=== PATIENT | male | born 1990 | race Caucasian/White ===

== ENCOUNTER 2017-05-04 17:36 | Emergency (ER) | payer OTHER ==
[~2017-05-04] VITALS: Ht 180.3 cm; Wt 86.9 kg
[2017-05-04 17:46] VITALS: TEMP 37.3; Ht 180.3 cm; Wt 86.9 kg
[2017-05-04] MEDS ORDERED: SODIUM CHLORIDE 0.9% 1000ML 1,000 ML IV STA (18:14)
[2017-05-04 18:44] LABS: BASO % 0.3 %; BASO ABS # 0.03 K/uL (0-0.2); COMPLETE YES; EOS % 1.1 %; HEMATOCRIT 46.8 % (42-52); IG% 0.3 %; LYMPH ABS # 2.33 K/uL (1.2-3.4); MEAN CELL VOLUME 86.3 fL (80-100); MEAN CORPUSCULAR HEMOGLOBIN 29.5 pg (25-34); MEAN CORPUSCULAR HGB CONC 34.2 g/dl (32-36); MEAN PLATELET VOLUME 8.9 fL (7.4-10.4); NEUT % 67.3 %; PLATELET COUNT 258 K/uL (130-400); RED BLOOD COUNT 5.42 M/uL (4.7-6.1); WHITE BLOOD COUNT 10.59 K/uL (4.8-10.8)
--- NOTE | 2017-05-04 18:46 | DIAGNOSTIC IMAGING REPORT ---
CHEST ONE VIEW PORTABLE CLINICAL HISTORY: Overdose COMPARISON STUDY: Chest CT April 28, 2014. FINDINGS: There is no pneumothorax or pleural effusion. No consolidation is identified and there is no evidence of pulmonary edema. Cardiomediastinal silhouette is normal. IMPRESSION: No acute cardiopulmonary findings. Electronically signed by: Arley Ramirez M.D. 05/04/2017 6:45 PM Dictated Date/Time: 05/04/2017 6:44 PM
--- NOTE | 2017-05-04 18:47 | EMERGENCY ROOM VISIT NOTE ---
History Report prepared by Sharlene: Luis Olivo Under the Supervision of: Dr. Abelino Rodriguez D.O. First contact with patient: 17:53 Chief Complaint: OVERDOSE (INTENTIONAL) Stated Complaint: MAY HAVE OD History of Present Illness The patient is a 26 year old male who presents to the Emergency Room for evaluation of a possible multi-drug overdose. He states that he took a large amount of Klonopin throughout the day. He states that the Klonopin were 0.5 mg tablets. The patient is unsure how many Klonopin he took in total. He also admits to taking Percocet and using speed and IV heroin today as well. He states "I'm addicted to opiates". The patient states that he and his are getting . He states "I'm just having a nervous breakdown". He states that he was trying to harm himself. The patient has not been admitted to a mental health facility before. He has been through drug rehab multiple times, with the most recent visit being two years ago. He notes that he has a history of a-fib and is on Metoprolol. The patient is a smoker. He states that the most recent time he drank alcohol was yesterday. He states that he occasionally smokes marijuana. Per friend, the patient was brought to their house by his mother. He states that the patient's mother brought him over because he appeared very intoxicated, and she was concerned that he was harming himself but would not let her take him to the hospital. HPI limited secondary to drug intoxication. Source of History: patient, friend History Limited By: intoxication Onset: Today Quality: other (multi-drug overdose) Timing: other (episode) Review of Systems ROS limited secondary to drug intoxication. Past Medical & Surgical Surgical Problems: (1) Hx of tonsillectomy Social History Problems: (1) Heroin use (2) IV drug user Family History FHx: cardiovascular disease Social History Smoking Status: Current Every Day Smoker Alcohol Use: none Drug Use: heroin Marital Status: single Housing Status: lives with family Occupation Status: employed Current/Historical Medications No Active Prescriptions or Reported Meds Allergies Coded Allergies: No Known Allergies (Unverified , 02/12/16) Physical Exam Vital Signs Date Time Temp Pulse Resp B/P (MAP) Pulse Ox O2 Delivery O2 Flow Rate FiO2 05/04/17 21:07 105 18 143/81 98 Room Air 05/04/17 19:21 90 16 162/87 97 Room Air 05/04/17 17:46 37.3 132 20 153/100 95 Room Air Physical Exam GENERAL: Patient is listless and slow to respond to questions. Makes poor eye contact at times. EYES: Pupils dilated and minimally reactive to light bilaterally. EARS, NOSE, MOUTH AND THROAT: The nose is without any evidence of any deformity. Mucous membranes are moist tongue is midline NECK: The neck is nontender and supple. RESPIRATORY: Normal respiratory effort is noted there is no evidence of wheezing rhonchi or rales CARDIOVASCULAR: Tachycardic but regular. No definite murmurs to auscultation. GASTROINTESTINAL: The abdomen is soft. Bowel sounds are present in all quadrants. Abdomen is nontender MUSCULOSKELETAL/EXTREMITIES: There is no evidence of gross deformity full range of motion is noted in the hips and shoulders SKIN: No pedal edema. Track jamil in the left AC. NEUROLOGIC: Patient is oriented x3. Patellar reflexes were 1+ bilaterally. PSYCH: Currently admitting to using drugs. Vague suicidal ideation surrounding his recent problems with his . Medical Decision & Procedures ER Provider Diagnostic Interpretation: X-ray results as stated below per interpretation by me and the radiologist. CHEST ONE VIEW PORTABLE FINDINGS: There is no pneumothorax or pleural effusion. No consolidation is identified and there is no evidence of pulmonary edema. Cardiomediastinal silhouette is normal. IMPRESSION: No acute cardiopulmonary findings. Electronically signed by: Arley Ramirez M.D. Laboratory Results 05/04/17 18:20 Red Blood Count 5.42, Mean Corpuscular Volume 86.3, Mean Corpuscular Hemoglobin 29.5, Mean Corpuscular Hemoglobin Concent 34.2, Mean Platelet Volume 8.9, Neutrophils (%) (Auto) 67.3, Lymphocytes (%) (Auto) 22.0, Monocytes (%) (Auto) 9.0, Eosinophils (%) (Auto) 1.1, Basophils (%) (Auto) 0.3, Neutrophils # (Auto) 7.13, Lymphocytes # (Auto) 2.33, Monocytes # (Auto) 0.95, Eosinophils # (Auto) 0.12, Basophils # (Auto) 0.03 05/04/17 18:20 Test 05/04/17 18:20 05/04/17 18:28 05/04/17 18:44 White Blood Count 10.59 K/uL (4.8-10.8) Red Blood Count 5.42 M/uL (4.7-6.1) Hemoglobin 16.0 g/dL (14.0-18.0) Hematocrit 46.8 % (42-52) Mean Corpuscular Volume 86.3 fL (80-100) Mean Corpuscular Hemoglobin 29.5 pg (25-34) Mean Corpuscular Hemoglobin Concent 34.2 g/dl (32-36) Platelet Count 258 K/uL (130-400) Mean Platelet Volume 8.9 fL (7.4-10.4) Neutrophils (%) (Auto) 67.3 % Lymphocytes (%) (Auto) 22.0 % Monocytes (%) (Auto) 9.0 % Eosinophils (%) (Auto) 1.1 % Basophils (%) (Auto) 0.3 % Neutrophils # (Auto) 7.13 K/uL (1.4-6.5) Lymphocytes # (Auto) 2.33 K/uL (1.2-3.4) Monocytes # (Auto) 0.95 K/uL (0.11-0.59) Eosinophils # (Auto) 0.12 K/uL (0-0.5) Basophils # (Auto) 0.03 K/uL (0-0.2) RDW Standard Deviation 40.6 fL (36.4-46.3) RDW Coefficient of Variation 12.8 % (11.5-14.5) Immature Granulocyte % (Auto) 0.3 % Immature Granulocyte # (Auto) 0.03 K/uL (0.00-0.02) Anion Gap 11.0 mmol/L (3-11) Est Creatinine Clear Calc Drug Dose 110.2 ml/min Estimated GFR () 108.3 Estimated GFR (Non- 93.5 BUN/Creatinine Ratio 15.9 (10-20) Calcium Level 9.0 mg/dl (8.5-10.1) Total Bilirubin 0.9 mg/dl (0.2-1) Direct Bilirubin 0.2 mg/dl (0-0.2) Aspartate Amino Transf (AST/SGOT) 32 U/L (15-37) Alanine Aminotransferase (ALT/SGPT) 93 U/L (12-78) Alkaline Phosphatase 101 U/L (45-117) Total Creatine Kinase 196 U/L (39-308) Creatine Kinase MB 1.2 ng/ml (0.5-3.6) Creatine Kinase MB Ratio 0.6 (0-3.0) Troponin I < 0.015 ng/ml (0-0.045) Total Protein 8.3 gm/dl (6.4-8.2) Albumin 4.7 gm/dl (3.4-5.0) Lipase 81 U/L (73-393) Salicylates Level < 1.7 mg/dl (2.8-20) Acetaminophen Level < 2 ug/ml (10-30) Venous Blood pH 7.46 (7.36-7.41) Venous Blood Partial Pressure CO2 38 mmHg (38.0-50.0) Venous Blood Partial Pressure O2 37 mmHg Venous Blood HCO3 26 mmol/L Venous Blood Oxygen Saturation 74.6 % Venous Blood Base Excess 2.5 mmol/L Ethyl Alcohol mg/dL < 3.0 mg/dl (0-3) Bedside Glucose 105 mg/dl (70-99) Laboratory results per my review. Medications Administered Medications (Trade) Dose Ordered Sig/Nicolle Route Start Time Stop Time Status Last Admin Dose Admin Sodium Chloride 1,000 ml @ 999 mls/hr Q1H1M STAT IV 05/04/17 18:14 05/04/17 19:14 DC 05/04/17 19:08 999 MLS/HR ECG Indication: toxicologic Rate (beats per minute): 115 Rhythm: sinus tachycardia Findings: no ectopy, other (No acute ST segment abnormalities) Comparison ECG Date: Sep 20, 2014 Change: no significant change ED Course 1801: The patient was evaluated in room A8. A complete history and physical examination were performed. 1813: Ordered NSS 1,000 ml @ 999 mls/hr IV 2024: I reassessed the patient. He is more awake. He states that he was not trying to hurt himself today. 2139: I checked in on the patient. He is resting comfortably. He denies any suicidal ideation. 2229: The patient was signed out to Dr. Guerra at the change of shift pending clinical sobriety. Medical Decision Differential diagnosis: Etiologies such as mood disorder, infection, hypoglycemia, electrolyte abnormalities, cardiac sources, intracerebral event, toxicologic, neurologic, as well as others were entertained. Nursing notes reviewed. Additional history is obtained from the patient's family members. The patient is a 26-year-old male who presented to the emergency department for a mental health evaluation. The patient admits to taking a significant amount of his prescription benzodiazepine as well as his prescription pain medication. He also states that he used heroin via the IV route earlier today. He states that he started using these medications in the late morning and then continued throughout the day. He was noted to have an alteration in his mental status by his family members and he was brought to the emergency department. He did admit that he was using these medications recreationally but also because he was very saddened because of a recent problem with his relationship with his significant other. The patient at this time is denying any suicidal or homicidal ideation. He was very intoxicated when he initially came to the emergency department. He was observed in the emergency Department and reevaluated multiple times. He was evaluated by the mental health bilingual patient support caseworker. Additional history was obtained from the family members. They were very concerned about the patient's drug abuse and also concerned that he may have been using these medications in an attempt to hurt himself but when the patient was much less clinically intoxicated he admitted that he did not take any of these medications in an attempt to harm himself rather he states that he has a history of drug addiction and felt as though he was using his medications and a recreational manner. The patient was allowed to rest longer in the emergency department. He was signed out at change of shift to Dr. Guerra. Please see his note for continuation of care but I did tell the patient that if he was able to be discharged home he should avoid any further alcohol or drug abuse. He was also advised to avoid operating any heavy machinery for next 24 hours. This would include driving a vehicle. He was also encouraged to call crisis or return to the emergency department immediately if symptoms change worsen or the need arises. He was also encouraged to follow-up with a therapist as soon as possible. [place] Drug Monitoring Program Search Results: patient reviewed within database, no issues identified Impression Primary Impression: Substance abuse Additional Impression: Depression Scribe Attestation The scribe's documentation has been prepared under my direction and personally reviewed by me in its entirety. I confirm that the note above accurately reflects all work, treatment, procedures, and medical decision making performed by me. Departure Information Dispostion Still a Patient (Signed out to Dr. Guerra ) Prescriptions No Active Prescriptions or Reported Meds Referrals No Doctor, Assigned (PCP) Patient Instructions My [facility] Problem Qualifiers
[2017-05-04 18:57] LABS: VEN BLD GAS O2 SATURATION 74.6 %; VEN BLOOD GAS BASE EXCESS 2.5 mmol/L
[2017-05-04 19:06] LABS: ALT/SGPT 93 U/L (12-78); AST/SGOT 32 U/L (15-37); BLOOD UREA NITROGEN 18 mg/dl (7-18); BUN/CREATININE RATIO 15.9 (10-20); CARBON DIOXIDE 25 mmol/L (21-32); CHLORIDE 108 mmol/L (98-107); GLUCOSE 106 mg/dl (70-99); POTASSIUM 3.4 mmol/L (3.5-5.1); SODIUM 144 mmol/L (136-145)
[2017-05-04 19:10] LABS: ACETAMINOPHEN < 2 ug/ml (10-30)
[2017-05-04 19:12] LABS: ALKALINE PHOSPHATASE 101 U/L (45-117); CKMB/CK RATIO 0.6 (0-3.0)
[2017-05-05 00:11] VITALS: BP 144/89; PULSE 80; O2SAT 98
== END 2017-05-05 00:12 | disposition home or self-care (01) ==
LOC: C.EDB 17:37 → C.EDA 05-05 00:12
DX: T40.1X2A Poisoning by heroin, intentional self-harm, initial encounter (principal); F11.10 Opioid abuse, uncomplicated; F15.10 Other stimulant abuse, uncomplicated; F19.10 Other psychoactive substance abuse, uncomplicated; F32.9 Major depressive disorder, single episode, unspecified; F17.200 Nicotine dependence, unspecified, uncomplicated; Z90.89 Acquired absence of other organs; Z82.49 Family history of ischemic heart disease and other diseases of the circulatory system

== ENCOUNTER 2017-10-19 19:10 | Emergency (ER) | payer OTHER ==
[~2017-10-19] VITALS: Ht 182.9 cm; Wt 89.4 kg
[2017-10-19 19:21] VITALS: TEMP 36.9; Ht 182.9 cm; Wt 89.4 kg
[2017-10-19] MEDS ORDERED: LIDOCAINE/EPINEPHRINE 1% 20 ML VIAL INFIL STA (19:31)
[2017-10-19] MEDS ORDERED: CEPHALEXIN 500MG HOME PACK 1 EA BTL PO STA (20:05)
[2017-10-19] MEDS ORDERED: SEPTRA DS HOME PACK 1 EA VIAL PO STA (20:05)
[2017-10-19] MEDS ORDERED: CEPH500C PO (20:07)
[2017-10-19] MEDS ORDERED: SULF800T23 PO (20:07)
--- NOTE | 2017-10-19 20:11 | EMERGENCY ROOM VISIT NOTE ---
ED Visit Note First contact with patient: 19:27 CHIEF COMPLAINT: Pain in the left buttock HISTORY OF PRESENT ILLNESS: This 27-year-old male patient presents to the emergency department, ambulatory, 2 days after they noticed a hard, red, tender area on the left buttock. It is slowly getting larger, more painful and tender. No fever, chills, or loss of appetite. There has been no drainage from the area. There was no injury to the area preceding the infection. They rate the pain as throbbing and 5/10. Tetanus shot is up to date. They have tried nothing. The patient is not diabetic. The patient has no history of subcutaneous abscesses. REVIEW OF SYSTEMS: A 10-review of systems was performed with positives and pertinent negatives listed in the history of present illness. All other systems were reviewed and are negative. ALLERGIES: None MEDICATIONS: None PMH: None SOCIAL HISTORY: The patient lives locally with family. He denies drug, alcohol use. The patient admits to smoking one half pack cigarettes per day. PHYSICAL EXAM: Vital Signs: Reviewed Nurse's notes, vital signs stable. GENERAL : This is a 27-year-old white male, no acute distress, non toxic in appearance, well-developed well-nourished. SKIN: There is an erythematous indurated area on the left buttock which measures about 3 cm in diameter. It is fluctuant but there is no pointing or drainage. There is a zone of inflammation around it but no lymphangitis. Capillary refill less than 2 seconds. MUSCULOSKELETAL: There is no limitation of the range of motion of the left lower extremity. EMERGENCY DEPARTMENT COURSE: I examined the patient. Verbal consent was obtained to perform the procedure. After saline and Betadine cleansing and 3 mL of 1% buffered lidocaine anesthesia, the abscess was incised with a number 11 scalpel blade. A large amount of purulent material was released with more expressed by pressure. A swab was obtained for culture. 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 The abscess cavity was then copiously irrigated with sterile saline under pressure. The area was then packed with bacitracin soaked packing. The area was cleaned with sterile saline and dressed with bacitracin and a bulky bandage. The patient tolerated the procedure well. The patient was discharged home in stable condition. I attest that I have personally reviewed the patient's current medication list. Patient was found to have normal blood pressure on screening and does not require follow-up. DIFFERENTIAL DIAGNOSIS: Abscess, cellulitis, malignancy, and others DIAGNOSIS: Abscess of the left buttock Problem List Surgical Problems: (1) Hx of tonsillectomy Status: Resolved Social History Problems: (1) Heroin use Status: Chronic (2) IV drug user Status: Chronic Current/Historical Medications Scheduled Cephalexin Monohydrate (Keflex), 500 MG PO QID Sulfa/Trimethoprim (Bactrim Ds 800MG/160MG), 1 TAB PO BID Allergies Coded Allergies: No Known Allergies (Unverified , 02/12/16) Vital Signs Date Time Temp Pulse Resp B/P (MAP) Pulse Ox O2 Delivery O2 Flow Rate FiO2 10/19/17 19:21 36.9 118 20 96 Room Air Departure Information Impression Primary Impression: Abscess of left buttock Dispostion Home / Self-Care Condition GOOD Prescriptions Sulfa/Trimethoprim (Bactrim Ds 800MG/160MG) Tab 1 TAB PO BID for 7 Days, #14 TAB Prov: Marysol Napoles PA-C 10/19/17 Cephalexin Monohydrate (Keflex) 500 Mg Cap 500 MG PO QID for 7 Days, #28 CAP Prov: Marysol Napoles PA-C 10/19/17 Referrals No Doctor, Assigned (PCP) Patient Instructions ED Abscess [facility] Additional Instructions You were seen in the emergency department today for an abscess on your left buttock. This was successfully drained, and packing was placed. Leave the packing in place for the next 48 hours. You should be seen in the emergency department or your PCP to have packing removed at that time and with the wound reevaluated. You may change the outer dressing if it becomes saturated with blood or pus. Please avoid getting the wound wet until the packing is removed. You were prescribed Bactrim and Keflex to be taken as directed. This is an antibiotic. All antibiotics have the potential to cause diarrhea. Stop this medication and contact a medical provider if you were to develop any significant adverse side effects including: wheezing, shortness of breath, passing out, vomiting, or a diffuse rash. Always take antibiotics as directed and COMPLETE the ENTIRE course regardless of the improvement of your symptoms. Ibuprofen(Motrin, Advil) may be used for fever or pain. Use 600mg every six hours as needed. Take with food. Avoid using more than 2400mg in a 24 hour period. Do not use 2400mg per day for more than three consecutive days without physician direction. Prolonged inappropriate use can lead to stomach upset or ulcers. (AND/OR) Acetaminophen(Tylenol) may be used for fever or pain. Use 1000mg every six hours as needed. Avoid using more than 3000mg in a 24 hour period. Please return to the emergency department for worsening puslike drainage, fever , chills, nausea, vomiting, systemic symptoms, or other concerning symptoms.
[2017-10-19 20:25] VITALS: BP 136/75; PULSE 97; O2SAT 96
== END 2017-10-19 20:27 | disposition home or self-care (01) ==
LOC: C.EDB 19:11 → C.EDD 20:27
DX: L02.31 Cutaneous abscess of buttock (principal); F17.210 Nicotine dependence, cigarettes, uncomplicated; F11.90 Opioid use, unspecified, uncomplicated

== ENCOUNTER 2017-11-13 15:52 | Emergency (ER) | payer OTHER ==
[~2017-11-13] VITALS: Ht 182.9 cm; Wt 88.5 kg
[2017-11-13 16:10] VITALS: TEMP 37; Ht 182.9 cm; Wt 88.5 kg
[2017-11-13] MEDS ORDERED: MoRPHine SULFATE 4 MG/ML 1 ML CARP\\VIAL IV STA (16:58)
[2017-11-13] MEDS ORDERED: ONDANSETRON INJ 2 MG/ML 2 ML VIAL IV STA (16:58)
[2017-11-13] MEDS ORDERED: CEFTRIAXONE SOD INJ 1 GM ADDVIAL IV STA (16:58)
[2017-11-13] MEDS ORDERED: HYDROCODONE/ACETAMOPHEN 5/325MG TAB PO ONE (17:00)
[2017-11-13] MEDS ORDERED: SULFAMETHOXAZOLE/TRIMETHOPRIM DS 800/160MG TAB PO ONE (17:00)
[2017-11-13] MEDS ORDERED: CEPHALEXIN MONOHYDRATE 250 MG CAP PO ONE (17:00)
[2017-11-13 17:27] LABS: BASO % 0.4 %; BASO ABS # 0.04 K/uL (0-0.2); COMPLETE YES; EOS % 3.3 %; HEMATOCRIT 43.1 % (42-52); LYMPH % 18.5 %; LYMPH ABS # 2.04 K/uL (1.2-3.4); MEAN CELL VOLUME 87.4 fL (80-100); MEAN CORPUSCULAR HEMOGLOBIN 30.8 pg (25-34); MEAN CORPUSCULAR HGB CONC 35.3 g/dl (32-36); MEAN PLATELET VOLUME 8.7 fL (7.4-10.4); MONO % 10.1 %; NEUT % 66.7 %; PLATELET COUNT 248 K/uL (130-400); RED BLOOD COUNT 4.93 M/uL (4.7-6.1); WHITE BLOOD COUNT 11.02 K/uL (4.8-10.8)
[2017-11-13] MEDS ORDERED: OPTIRAY 320 IV PRN (17:30)
[2017-11-13 17:47] LABS: BUN/CREATININE RATIO 14.3 (10-20); CALCIUM 9.3 mg/dl (8.5-10.1); CREATININE 0.98 mg/dl (0.60-1.40)
--- NOTE | 2017-11-13 18:48 | DIAGNOSTIC IMAGING REPORT ---
CT FACIAL-MAXILLOFACIAL WITH CT DOSE: 137.99 mGy.cm CLINICAL HISTORY: Right-sided facial swelling and redness. TECHNIQUE: Patient was scanned in a dynamic helical fashion during intravenous administration 116 cc of Optiray 320. Coronal reformatted images were acquired. A dose lowering technique was utilized adhering to the principles of ALARA. COMPARISON STUDY: None. FINDINGS: No facial fractures are visualized. There is no evidence of acute sinusitis. Visualized portions intracranial contents are unremarkable. No orbital lesions are visualized. There are prominent submental, retromandibular, and jugulodigastric lymph nodes, likely reactive. Clinical follow-up is advocated. There is mild premandibular and premaxillary soft tissue swelling, asymmetric on the right. There are no fluid collections to indicate an abscess. There is no evidence for airway compromise. IMPRESSION: 1. Facial swelling, asymmetric on the right 2. No evidence of abscess 3. No evidence of airway compromise 4. Prominent cervical lymph nodes, likely reactive. Clinical follow-up is advocated Electronically signed by: Matthias Harden M.D. 11/13/2017 6:47 PM Dictated Date/Time: 11/13/2017 6:42 PM
[2017-11-13] MEDS ORDERED: SULF800T23 PO (19:11)
[2017-11-13] MEDS ORDERED: CEPH500C2 PO (19:11)
[2017-11-13] MEDS ORDERED: HYDR-5688 PO (19:11)
[2017-11-13] MEDS ORDERED: SEPTRA DS HOME PACK 1 EA VIAL PO ONE (19:15)
[2017-11-13] MEDS ORDERED: NORCO 5/325MG HOME PACK PO ONE (19:15)
[2017-11-13] MEDS ORDERED: CEPHALEXIN 500MG HOME PACK 1 EA BTL PO ONE (19:15)
[2017-11-13 19:24] VITALS: BP 132/83; PULSE 81; O2SAT 97
--- NOTE | 2017-11-13 21:14 | EMERGENCY ROOM VISIT NOTE ---
ED Visit Note First contact with patient: 16:26 CHIEF COMPLAINT: Upper lip infection. HISTORY OF PRESENT ILLNESS: Mr. Asif is an 27-year-old white male who ambulates into the ED accompanied by female friend complaining upper lip pain and swelling. Patient reports 4 days ago he chipped his right maxillary incisor tooth in a nontraumatic event. Then 2 days ago he noted right sided swelling of the upper lip. Over the last 2 days she reports she has noted increasing pain and swelling in this area as well as redness. Currently he complains of a severe throbbing pain in the lip. He rates his discomfort 10/10. The pain is radiating superiorly in the face into the maxillary sinus area and the inferior orbital area. This pain worsens with palpation of the lip in the face. He has not identified any alleviating factors related to the pain. He reports he has been taking pnik-ycd-prafack medications without relief of his discomfort. Associated with his pain he has been having chills but no miguel angel fevers, decreased appetite and mild nausea. He denies other skin eruptions, other skin color changes, headache, dizziness, lightheadedness, visual changes, difficulty speaking, difficulty swallowing, drooling, painful swallowing, neck pain/stiffness, upper respiratory tract symptoms, shortness of breath. REVIEW OF SYSTEMS: As noted above in History of Present Illness; a body systems reviewed with the patient and found to be negative unless noted above otherwise. PAST MEDICAL HISTORY: Patient denies. CURRENT MEDICATION: Patient denies. ALLERGIES TO MEDICATION: Patient denies. SOCIAL HISTORY: Patient is not employed; he lives with his and feels safe in his home environment; he admits to tobacco use and denies alcohol use. PHYSICAL EXAM: Vital Signs: Date Time Temp Pulse Resp B/P (MAP) Pulse Ox O2 Delivery O2 Flow Rate FiO2 11/13/17 19:24 81 18 132/83 97 Room Air 11/13/17 18:43 82 18 145/75 99 Room Air 11/13/17 16:10 37.0 97 18 143/88 96 Room Air General: 27 year-old white male in moderate distress due to pain, nontoxic appearing, afebrile and hemodynamically stable. Neurological: Awake, alert and oriented to person, place and time. Answering questions appropriately and following commands. Skin: Warm, dry and pink. Face: Left upper lip which is indurated and mildly erythematous. There is a small amount of yellowish material that is stuck over this area but no active draining. There is no palpable abscess. There is swelling that extends up into the maxillary sinus and the inferior orbital area ; this area is not erythematous or warm to touch. The areas also not cellulitic. No lymphangitis. HEENT: Soft tissue injury as described above. No other facial skin abnormalities. PERRLA. EOMI without nystagmus. Oral cavity is moist and pink. No preauricular, postauricular, submandibular or cervical lymphadenopathy. Airway is patent. Speech is normal and clear. No posterior pharyngeal erythema or edema. Thorax: Lungs sounds are clear to auscultation and equal bilaterally with symmetrical chest wall movement. No wheezing, rales or rhonchi. No increased respiratory effort. Abdomen: Flat, soft and nontender. Positive bowel sounds in all quadrants. ED COURSE: Patient is assessed as noted above. Patient's medication list was reviewed. Laboratory testing: Test 11/13/17 17:13 Range/Units White Blood Count 11.02 4.8-10.8 K/uL Red Blood Count 4.93 4.7-6.1 M/uL Hemoglobin 15.2 14.0-18.0 g/dL Hematocrit 43.1 42-52 % Mean Corpuscular Volume 87.4 80-100 fL Mean Corpuscular Hemoglobin 30.8 25-34 pg Mean Corpuscular Hemoglobin Concent 35.3 32-36 g/dl Platelet Count 248 130-400 K/uL Mean Platelet Volume 8.7 7.4-10.4 fL Neutrophils (%) (Auto) 66.7 % Lymphocytes (%) (Auto) 18.5 % Monocytes (%) (Auto) 10.1 % Eosinophils (%) (Auto) 3.3 % Basophils (%) (Auto) 0.4 % Neutrophils # (Auto) 7.36 1.4-6.5 K/uL Lymphocytes # (Auto) 2.04 1.2-3.4 K/uL Monocytes # (Auto) 1.11 0.11-0.59 K/uL Eosinophils # (Auto) 0.36 0-0.5 K/uL Basophils # (Auto) 0.04 0-0.2 K/uL RDW Standard Deviation 41.1 36.4-46.3 fL RDW Coefficient of Variation 12.9 11.5-14.5 % Immature Granulocyte % (Auto) 1.0 % Immature Granulocyte # (Auto) 0.11 0.00-0.02 K/uL Sodium Level 135 136-145 mmol/L Potassium Level 4.0 3.5-5.1 mmol/L Chloride Level 102 98-107 mmol/L Carbon Dioxide Level 27 21-32 mmol/L Anion Gap 6.0 3-11 mmol/L Blood Urea Nitrogen 14 7-18 mg/dl Creatinine 0.98 0.60-1.40 mg/dl Est Creatinine Clear Calc Drug Dose 126.5 ml/min Estimated GFR () 123.7 Estimated GFR (Non- 106.7 BUN/Creatinine Ratio 14.3 10-20 Random Glucose 92 70-99 mg/dl Calcium Level 9.3 8.5-10.1 mg/dl Blood Culture: Pending Facial CT with IV contrast: Was reviewed by myself and read by the radiologist showing facial swelling and asymmetry on the right. No evidence of abscess. No airway compromise. Predominant cervical lymph nodes. IV lock was initiated and patient received 4 mg of morphine IV for pain, 4 mg of Zofran. 1 g of Rocephin IV and one Bactrim DS tablet by mouth. Patient was reassessed multiple times during his stay in the emergency department. Patient's case was reviewed with Dr. Nguyen; she in apparently assessed the patient we agreed on diagnostic approach, treatment, disposition and plan. Patient was educated about his condition and instructed on his treatment plan; he verbalized understanding and agreement with this plan. CLINICAL IMPRESSION: Facial cellulitis. DISPOSITION: Patient discharged to home in stable condition accompanied by his ; prior to departure he was reassessed and subjectively reports feeling better and rated his discomfort 6/10.. PLAN: Patient was prescribed Keflex and Bactrim and instructed on their use. Patient was placed on a sliding pain medication scale of ibuprofen, see the benefit and Gilbert; his name was checked on the state database and he was given appropriate narcotic precautions. Patient was encouraged to return to the ED in 36-48 hours for recheck or sooner for worsening pain, increasing redness/swelling, fevers or any new/concerning symptoms.
== END 2017-11-13 19:31 | disposition home or self-care (01) ==
LOC: C.EDB 15:53 → C.EDD 19:31
DX: L03.211 Cellulitis of face (principal); K03.81 Cracked tooth; F17.200 Nicotine dependence, unspecified, uncomplicated

== ENCOUNTER 2018-03-09 19:18 | Emergency (ER) | payer OTHER ==
[~2018-03-09] VITALS: Ht 182.9 cm; Wt 83.6 kg
[~2018-03-09 19:18] MED LIST: HYDR-5688 PO
[2018-03-09 19:30] VITALS: TEMP 36.8; Ht 182.9 cm; Wt 83.6 kg
[2018-03-09 20:19] LABS: BASO % 0.3 %; BASO ABS # 0.03 K/uL (0-0.2); EOS % 5.3 %; EOS ABS # 0.54 K/uL (0-0.5); HEMATOCRIT 40.4 % (42-52); HEMOGLOBIN 14.6 g/dL (14.0-18.0); IG# 0.01 K/uL (0.00-0.02); LYMPH % 31.4 %; LYMPH ABS # 3.22 K/uL (1.2-3.4); MEAN CELL VOLUME 82.4 fL (80-100); MEAN CORPUSCULAR HEMOGLOBIN 29.8 pg (25-34); MEAN CORPUSCULAR HGB CONC 36.1 g/dl (32-36); MEAN PLATELET VOLUME 8.7 fL (7.4-10.4); MONO % 8.8 %; NEUT % 54.1 %; NEUT ABS # 5.56 K/uL (1.4-6.5); PLATELET COUNT 198 K/uL (130-400); RED CELL DISTRIBUTION WIDTH CV 13.4 % (11.5-14.5); RED CELL DISTRIBUTION WIDTH SD 40.5 fL (36.4-46.3); WHITE BLOOD COUNT 10.26 K/uL (4.8-10.8)
[2018-03-09 20:38] LABS: CALCIUM 9.2 mg/dl (8.5-10.1); CREATININE 0.85 mg/dl (0.60-1.40); POTASSIUM 3.5 mmol/L (3.5-5.1)
[2018-03-09] MEDS ORDERED: OPTIRAY 320 IV PRN (20:45)
--- NOTE | 2018-03-09 21:15 | DIAGNOSTIC IMAGING REPORT ---
CT FACIAL-MAXILLOFACIAL WITH CT DOSE: 125.84 mGy.cm CLINICAL HISTORY: Left facial cellulitis. TECHNIQUE: Patient was scanned in a dynamic helical fashion during intravenous administration of 93 cc of Optiray 320. A dose lowering technique was utilized adhering to the principles of ALARA. COMPARISON STUDY: None. FINDINGS: There is left facial cutaneous and subcutaneous edema most pronounced in the prezygomatic region. Edema extends inferior to the submandibular region. There is no retroconal involvement. There are no fluid collections to indicate an abscess. There is equivocal mild left masseter edema. There are prominent left submandibular lymph nodes likely reactive. The epiglottis and retropharyngeal soft tissues appear normal with the exception of mild tonsillar and adenoidal hypertrophy. There is mild edema of the uvula IMPRESSION: 1. Left facial cutaneous and subcutaneous edema consistent with the history of a cellulitis 2. No evidence of abscess 3. Prominent submental and retromanubrial lymph nodes likely reactive 4. No evidence of orbital involvement 5. Mild tonsillar and adenoidal hypertrophy. Mild uvula edema. 6. Normal epiglottis Electronically signed by: Matthias Harden M.D. 03/09/2018 9:14 PM Dictated Date/Time: 03/09/2018 9:03 PM
[2018-03-09] MEDS ORDERED: CEPHALEXIN 500MG HOME PACK 1 EA BTL PO ONE (21:45)
[2018-03-09] MEDS ORDERED: SULF800T23 PO (21:45)
[2018-03-09] MEDS ORDERED: CEPH500C2 PO (21:45)
[2018-03-09] MEDS ORDERED: SEPTRA DS HOME PACK 1 EA VIAL PO ONE (21:45)
[2018-03-09 22:08] VITALS: BP 142/80; PULSE 107; O2SAT 97
--- NOTE | 2018-03-10 01:40 | EMERGENCY ROOM VISIT NOTE ---
ED Visit Note First contact with patient: 19:34 CHIEF COMPLAINT: Wound infection. HISTORY OF PRESENT ILLNESS: Mr. Asif is an 27-year-old white male who ambulates into the ED accompanied by his grandmother complaining of a possible abscess to the left side of the face. Historically patient reports he has a history of acne and facial cellulitis. Patient reports 2-3 days ago he noted an ingrown hair on the left side of his face. He reports he has been picking at the wound and opening up the wound. He has been experiencing increasing pain, increasing swelling, increasing redness and has been able to express puslike material and cottage cheese like material. Currently he describes his facial pain as a combination of sharp and throbbing. He rates his discomfort 10/10. His pain is nonradiating. His pain worsens with palpation of the face. He has not identified any alleviating factors related to the pain. He has not taken any medication for pain prior to arrival at the hospital. Associated with his facial lesion and pain he reports he has had chills but no miguel angel fevers. He denies other skin eruptions, other skin color changes, headache, dizziness, lightheadedness, upper respiratory tract symptoms, shortness of breath, chest pain, abdominal pain, decreased appetite, nausea/vomiting. REVIEW OF SYSTEMS: As noted above in History of Present Illness; all body systems were reviewed with the patient and found to be negative unless noted above otherwise. PAST MEDICAL HISTORY: As noted above, heroin abuse. CURRENT MEDICATION: Patient denies; but when checking [facility] database he is prescribed 8-2 mg Buprenorphin-Naloxon. ALLERGIES TO MEDICATION: Patient denies. SOCIAL HISTORY: Patient is not employed; he feels safe in his home environment; he admits to tobacco use and denies alcohol use. TETANUS IMMUNIZATION STATUS: Patient reports up-to-date. PHYSICAL EXAM: Vital Signs: Date Time Temp Pulse Resp B/P (MAP) Pulse Ox O2 Delivery O2 Flow Rate FiO2 03/09/18 22:08 107 20 142/80 97 03/09/18 21:24 96 20 127/79 97 Room Air 03/09/18 19:30 36.8 97 18 118/78 96 Room Air General: 27 year-old white male in no acute distress, nontoxic appearing, afebrile and hemodynamically stable. Neurological: Awake, alert and oriented to person, place and time. Answering questions appropriately and following commands. Skin: Warm, dry and pink. Face: Over the left sided a focus over the fleshy portion of the cheek and over the zygomatic arch area there is an indurated area in the 4-5 cm in diameter. The area is not fluctuant, there is no drainage or pointing. There is a zone of inflammation around it but no lymphangitis. HEENT: Atraumatic and normocephalic. Skin lesion as noted above. PERRLA. External ears are nontender. Tympanic membranes were not erythematous or edematous. There is left-sided preauricular lymphadenopathy. Oral cavity is moist and pink. Airway is patent. Uvula is midline and no abscesses were seen. No submandibular or cervical lymphadenopathy. Thorax: Lungs sounds are clear to auscultation and equal bilaterally with symmetrical chest wall movement. No wheezing, rales or rhonchi. Abdomen: Flat, soft and nontender. Positive bowel sounds in all quadrants. ED COURSE: Patient is assessed as noted above. Patient's medication list was reviewed. Laboratory Testing: Test 03/09/18 20:05 Range/Units White Blood Count 10.26 4.8-10.8 K/uL Red Blood Count 4.90 4.7-6.1 M/uL Hemoglobin 14.6 14.0-18.0 g/dL Hematocrit 40.4 42-52 % Mean Corpuscular Volume 82.4 80-100 fL Mean Corpuscular Hemoglobin 29.8 25-34 pg Mean Corpuscular Hemoglobin Concent 36.1 32-36 g/dl Platelet Count 198 130-400 K/uL Mean Platelet Volume 8.7 7.4-10.4 fL Neutrophils (%) (Auto) 54.1 % Lymphocytes (%) (Auto) 31.4 % Monocytes (%) (Auto) 8.8 % Eosinophils (%) (Auto) 5.3 % Basophils (%) (Auto) 0.3 % Neutrophils # (Auto) 5.56 1.4-6.5 K/uL Lymphocytes # (Auto) 3.22 1.2-3.4 K/uL Monocytes # (Auto) 0.90 0.11-0.59 K/uL Eosinophils # (Auto) 0.54 0-0.5 K/uL Basophils # (Auto) 0.03 0-0.2 K/uL RDW Standard Deviation 40.5 36.4-46.3 fL RDW Coefficient of Variation 13.4 11.5-14.5 % Immature Granulocyte % (Auto) 0.1 % Immature Granulocyte # (Auto) 0.01 0.00-0.02 K/uL Sodium Level 136 136-145 mmol/L Potassium Level 3.5 3.5-5.1 mmol/L Chloride Level 106 98-107 mmol/L Carbon Dioxide Level 26 21-32 mmol/L Anion Gap 4.0 3-11 mmol/L Blood Urea Nitrogen 14 7-18 mg/dl Creatinine 0.85 0.60-1.40 mg/dl Est Creatinine Clear Calc Drug Dose 145.8 ml/min Estimated GFR () 140.4 Estimated GFR (Non- 121.1 BUN/Creatinine Ratio 16.1 10-20 Random Glucose 86 70-99 mg/dl Calcium Level 9.2 8.5-10.1 mg/dl Facial CT with IV Contrast: Was reviewed by myself and read by the radiologist showing left facial cutaneous and subcutaneous edema consistent with cellulitis but no evidence of abscess, prominent submental and retro-mandibular lymph nodes , no evidence of orbital involvement, mild tonsillar and adenoidal hypertrophy, mild uvula edema, no epiglottitis. Patient was educated about his condition and instructed on his treatment plan; he verbalized understanding and agreement with this plan. CLINICAL IMPRESSION: Facial cellulitis. DISPOSITION: Patient discharged to home in stable condition accompanied by his grandmother; prior to departure he was reassessed and subjectively reported he was pain-free. PLAN: Patient was prescribed 500 mg of Keflex 4 times a day and Bactrim DS 2 times a day for total of 10 days. Patient was encouraged alternate ibuprofen and acetaminophen every 3 hours as needed for pain. Patient was encouraged to use warm compresses on the areas 5 times a day for 20 minutes. Patient was encouraged to avoid picking his face. Patient was encouraged to follow-up with primary care provider or return to the ED for recheck in 36-48 hours. Patient was encouraged return to the ED sooner for worsening/uncontrolled pain, uncontrolled swelling, puslike drainage, red streaking, fevers or any new/ concerning symptoms.
== END 2018-03-09 22:08 | disposition home or self-care (01) ==
LOC: C.EDB 19:20 → C.EDD 22:08
DX: L03.211 Cellulitis of face (principal); Z72.0 Tobacco use

== ENCOUNTER 2020-03-18 02:16 | Observation (INO) ==
[2020-03-18] MEDS ORDERED: VANCOMYCIN CONSULT ACTIVE PRN ×2 (02:52→06:47)
[2020-03-18] MEDS ORDERED: VANCOMYCIN HCL 1,750 MG in SODIUM CHLORIDE 0.9% 500 ML IV ONE (02:52)
[2020-03-18] MEDS ORDERED: PIPERACILLIN/TAZOBACTAM 4.5 GM/120 ML BAG IV ONE (02:52)
[2020-03-18] MEDS ORDERED: PIPERACILL/TAZOBAC CONSULT ACTIVE PRN ×2 (02:57→06:47)
[2020-03-18] MEDS ORDERED: ACETAMINOPHEN 1,000 MG/100 ML VIAL IV STA (03:00)
[2020-03-18 03:14] LABS: Basophils # (auto) 0.03 K/uL (0-0.2); Basophils % (auto) 0.2 %; Eosinophils # (auto) 0.31 K/uL (0-0.5); Eosinophils % (auto) 2.5 %; Hematocrit (blood only) 40.4 % (42-52); Hemoglobin 13.8 g/dL (14.0-18.0); Immature Granulocytes # (auto) 0.02 K/uL (0.00-0.02); Immature Granulocytes % (auto) 0.2 %; Lymphocytes # (auto) 2.44 K/uL (1.2-3.4); Lymphocytes % (auto) 19.8 %; Mean Corpuscular Hemoglobin 29.8 pg (25-34); Mean Corpuscular Hgb Conc 34.2 g/dL (32-36); Mean Corpuscular Volume 87.3 fL (80-100); Mean Platelet Volume 9.2 fL (7.4-10.4); Monocytes # (auto) 1.04 K/uL (0.11-0.59); Monocytes % (auto) 8.5 %; Neutrophils # (auto) 8.46 K/uL (1.4-6.5); Neutrophils % (auto) 68.8 %; Platelet Count 239 K/uL (130-400); RDW Coefficient of Variation 12.8 % (11.5-14.5); RDW Standard Deviation 41.1 fL (36.4-46.3); Red Blood Count 4.63 M/uL (4.7-6.1)
[2020-03-18] MEDS: SODIUM CHLORIDE 0.9% 1000ML 1,000 ML IV SCH ×2 (03:18→07:30)
[2020-03-18 03:36] LABS: Albumin Level 3.6 gm/dl (3.4-5.0); BUN Creatinine Ratio 17.6 (10-20); Calcium 9.2 mg/dl (8.5-10.1); Est GFR (African American) 138.4; Est GFR (Non-African American) 119.4; Potassium 3.7 mmol/L (3.5-5.1)
[2020-03-18 03:39] LABS: Albumin Globulin Ratio 0.9 (0.9-2); Bilirubin,Total 0.3 mg/dl (0.2-1); C Reactive Protein 4.54 mg/dl (0-0.29); Globulin 4.1 gm/dl (2.5-4.0); Total Protein 7.7 gm/dl (6.4-8.2)
--- NOTE | 2020-03-18 05:40 | History & Physical Report ---
Date of Service March 18, 2020 Assessment & Plan (1) Abscess, hand: S/p incision and drainage in the ER. Some streaking going up the hand. Patient afebrile, HD stable, no evidence of systemic infection -Observation to medical floor -Follow cultures, blood and wound sent from ER -Empiric Vancomycin and Zosyn -LR at 125mL/hr x 1 liter -Tylenol as needed for pain and fever Present on Admission?: Yes (2) Polysubstance abuse: Patient with history of polysubstance abuse, IV heroin. Presently on Buprenorphine/Naloxone. -Utox ordered in ER, awaiting results -Continue buprenorphine/naloxone -Would avoid all opiates for pain management. Patient may receive Tylenol and Toradol F/E/N - LR at 125mL/hr x 1 liter, regular diet Ppx - low risk for DVT Code - Full Dispo -Observation to medical floor, IV antibiotics Admission and Anticipated Discharge Date Admission Date: 03/18/20 Anticipated date of discharge: 03/18/20 History of Present Illness Chief Complaint: L hand abscess Primary Care Provider: David Jaime, 29yo C male with history of polysubstance abuse presenting with left hand abscess. He reports pain and swelling to left hand x 1 day. No trauma. No breaks in the skin that he recalls. He denies fevers, chills, nausea, vomiting, diarrhea or constipation. No additional complaints ER Course: Vancomycin, Zosyn, NSS, Tylenol Allergies Allergy/AdvReac Type Severity Reaction Status Date / Time Bactrim Allergy Intermediate rash Verified 06/05/18 09:16 cephalexin Allergy Intermediate rash Verified 02/20/20 11:58 sulfamethoxazole Allergy Intermediate rash Verified 02/20/20 11:58 trimethoprim Allergy Intermediate rash Verified 02/20/20 11:58 Home Medications Home Medications Medication Instructions Recorded Confirmed Type buprenorphine 8 mg-naloxone 2 mg 2 ea BUCCAL DAILY 10/05/19 03/18/20 History sublingual film Past Med/Surg History Social History Preferred Language: Urdu Communication Ability: Effective Visual Impairment: No Limitations Hearing Ability: Normal Business Office Assistant Required: No Beliefs That Will Affect Care: None marital status: Legally Current Living Situation: Family current occupational status: unemployed Feels Safe at Home: Yes Smoking Status: Current every day smoker Tobacco Type: cigarettes ; Age Started Using Tobacco: 20 ; packs per day: 1 ; Second Hand Exposure: Yes ; Hx Alcohol Use: No Hx Substance Use: Yes Substance Use Type Other:: last used one month ago- was in rehab go out 08/06/19 Diet Comment: no specific diet Dental Care, Regularly: Yes Physical Activity Frequency: 3-4 Times per Week Physical Activity Frequency Comment: gym Seatbelt Use: always Do you think of yourself as: straight/heterosexual Review of Systems Review of Systems: All systems reviewed & are unremarkable except as noted in HPI & below Physical Exam Physical Exam: General: patient resting comfortably, frequent myoclonic jerking during sleep, NAD, non-toxic in appearance but ill-kempt, AA&O x 4 Skin: warm, dry, abscess left hand drained in ER, some surrounding cellulitis, hand warm and slightly tender to touch HEENT: NC/AT, PERRL, EOMI, anicteric sclera, conjunctiva without injection, external ear normal to inspection and nontender, nares patent, moist mucus membranes, dentition intact, no oropharyngeal lesions, neck supple, trachea midline, no LAD, no thyromegaly, no JVD Heart: +S1/S2, regular, no m/r/g Lungs: equal air entry bilaterally, no rales/rhonchi/wheezes Abd: +BS, soft, NT/ND, no masses/organomegaly/ascites Ext: warm, 2+ pulses in UE/LE bilaterally, no clubbing/cyanosis or edema Neuro: nonfocal, patient AA&O x 4, speech intact, no facial droop, moving all extremities on command with equal strength 5/5 Results & Data Results & Data ([facility]) Vital Signs (Past 12 Hours) Vital Signs Temp Pulse Pulse Resp BP BP Pulse Ox 03/18/20 04:38 84 18 91/53 L 96 03/18/20 02:28 36.8 C 119 H 20 162/70 H 97 Laboratory Results Lab Results 03/18/20 03/18/20 03/18/20 Range/Units 03:01 03:01 03:03 WBC 12.30 H (4.8-10.8) K/uL RBC 4.63 L (4.7-6.1) M/uL Hgb 13.8 L (14.0-18.0) g/dL Hct 40.4 L (42-52) % MCV 87.3 (80-100) fL MCH 29.8 (25-34) pg MCHC 34.2 (32-36) g/dL RDW Std Deviation 41.1 (36.4-46.3) fL RDW Coeff of Lupe 12.8 (11.5-14.5) % Plt Count 239 (130-400) K/uL MPV 9.2 (7.4-10.4) fL Immature Gran % (Auto) 0.2 % Neut % (Auto) 68.8 % Lymph % (Auto) 19.8 % [place] % (Auto) 8.5 % Eos % (Auto) 2.5 % Baso % (Auto) 0.2 % Immature Gran # (Auto) 0.02 (0.00-0.02) K/uL Neut # (Auto) 8.46 H (1.4-6.5) K/uL Lymph # (Auto) 2.44 (1.2-3.4) K/uL [place] # (Auto) 1.04 H (0.11-0.59) K/uL Eos # (Auto) 0.31 (0-0.5) K/uL Baso # (Auto) 0.03 (0-0.2) K/uL ESR 38 H (0-14) mm/hr Sodium 139 (136-145) mmol/L Potassium 3.7 (3.5-5.1) mmol/L Chloride 107 (98-107) mmol/L Carbon Dioxide 29 (21-32) mmol/L Anion Gap 3.0 (3-11) BUN 15 (7-18) mg/dl Creatinine 0.85 (0.6-1.4) mg/dl Est Cr Clr Drug Dosing 139.0 ml/min Est GFR ( Amer) 138.4 Est GFR (Non-Af Amer) 119.4 BUN/Creatinine Ratio 17.6 (10-20) Glucose 97 (70-99) mg/dl Lactate (0.4-2.0) mmol/L Calcium 9.2 (8.5-10.1) mg/dl Total Bilirubin 0.3 (0.2-1) mg/dl AST 20 (15-37) U/L ALT 24 (12-78) U/L Alkaline Phosphatase 94 (45-117) U/L C-Reactive Protein 4.54 H (0-0.29) mg/dl Total Protein 7.7 (6.4-8.2) gm/dl Albumin 3.6 (3.4-5.0) gm/dl Globulin 4.1 H (2.5-4.0) gm/dl Albumin/Globulin Ratio 0.9 (0.9-2) 03/18/20 Range/Units 03:22 WBC (4.8-10.8) K/uL RBC (4.7-6.1) M/uL Hgb (14.0-18.0) g/dL Hct (42-52) % MCV (80-100) fL MCH (25-34) pg MCHC (32-36) g/dL RDW Std Deviation (36.4-46.3) fL RDW Coeff of Lupe (11.5-14.5) % Plt Count (130-400) K/uL MPV (7.4-10.4) fL Immature Gran % (Auto) % Neut % (Auto) % Lymph % (Auto) % [place] % (Auto) % Eos % (Auto) % Baso % (Auto) % Immature Gran # (Auto) (0.00-0.02) K/uL Neut # (Auto) (1.4-6.5) K/uL Lymph # (Auto) (1.2-3.4) K/uL [place] # (Auto) (0.11-0.59) K/uL Eos # (Auto) (0-0.5) K/uL Baso # (Auto) (0-0.2) K/uL ESR (0-14) mm/hr Sodium (136-145) mmol/L Potassium (3.5-5.1) mmol/L Chloride (98-107) mmol/L Carbon Dioxide (21-32) mmol/L Anion Gap (3-11) BUN (7-18) mg/dl Creatinine (0.6-1.4) mg/dl Est Cr Clr Drug Dosing ml/min Est GFR ( Amer) Est GFR (Non-Af Amer) BUN/Creatinine Ratio (10-20) Glucose (70-99) mg/dl Lactate 0.7 (0.4-2.0) mmol/L Calcium (8.5-10.1) mg/dl Total Bilirubin (0.2-1) mg/dl AST (15-37) U/L ALT (12-78) U/L Alkaline Phosphatase (45-117) U/L C-Reactive Protein (0-0.29) mg/dl Total Protein (6.4-8.2) gm/dl Albumin (3.4-5.0) gm/dl Globulin (2.5-4.0) gm/dl Albumin/Globulin Ratio (0.9-2) Code Status & VTE Plan Code Status FULL PG Care Time/CCT Total # of Minutes Spent Total Time Spent with Patient: Total time spent is greater than 50% in coordination of care (as documented) at patient's floor/unit and/or counseling patient: Coding Level of Care Code 79009 OBS Care - Level 2 Diagnoses Abscess, hand L02.519 Polysubstance abuse F19.10
--- NOTE | 2020-03-18 06:02 | XRay Report ---
XR hand LT min 3V routine CLINICAL HISTORY: Left proximal 3rd digit abscess. ?Osteo pain. Infection. COMPARISON: None. DISCUSSION: The bones and joint spaces appear intact. There is no evidence of fracture, dislocation o r bony disease. Mild dorsal soft tissue edema. No acute bony abnormality. IMPRESSION: Soft tissue edema. No acute bony abnormality. ACT 112: Negative or not required by law. The above report was generated using voice recognition software. It may contain grammatical, syntax or spelling errors. Electronically signed by: Kedar Harrison M.D. 03/18/2020 6:01 AM
--- NOTE | 2020-03-18 06:06 | Emergency Department Note ---
History of Present Illness General Chief complaint: Hand Injury/Pain Stated complaint: LT HAND INJURY - NOT SURE WHAT - BITE? Time Seen by Provider: 03/18/20 02:35 History of Present Illness Maximum Pain Intensity: 0 This is a 29-year-old male presenting to the emergency department for evaluation of pain to his left middle finger. Patient has had increased swelling, and is concerned for infection. He has not had fever or chills. He does have past history of polypharmacy IV drug abuse. The patient is not able to open and close his hand very well because of his swelling. He rates his current discomfort a 9/10. He is not having any chest pain, chest tightness, or shortness of breath. He is having red streaking up his arm and significant swelling to the back of his hand. He has not taken anything [id number] for his pain. He does have a history of staph infection, but not MRSA infection. Home Medications Home Medications Medication Instructions Recorded Confirmed Type buprenorphine 8 mg-naloxone 2 mg 2 ea BUCCAL DAILY 10/05/19 03/18/20 History sublingual film acetaminophen [Mapap 650 mg PO Q4H PRN #30 tab 03/18/20 Rx (acetaminophen)] amoxicillin-pot clavulanate 1 tab PO BID #20 tab 03/18/20 Rx [Augmentin] doxycycline hyclate 100 mg PO BID 10 Days #20 tab 03/18/20 Rx ibuprofen 800 mg PO Q8H PRN #30 tab 03/18/20 Rx Allergies Allergy/AdvReac Type Severity Reaction Status Date / Time Bactrim Allergy Intermediate rash Verified 06/05/18 09:16 cephalexin Allergy Intermediate rash Verified 02/20/20 11:58 sulfamethoxazole Allergy Intermediate rash Verified 02/20/20 11:58 trimethoprim Allergy Intermediate rash Verified 02/20/20 11:58 Past Med/Surg History Medical History Drug-seeking behavior (Acute) Heroin abuse (Acute) Heroin use (Chronic) IV drug user (Chronic) Ludwigs angina (Acute) Surgical History History of wisdom tooth extraction History of wisdom tooth extraction Hx of tonsillectomy (Resolved) Social History Preferred Language: Mauritian Communication Ability: Effective Visual Impairment: No Limitations Hearing Ability: Normal Field Technical Specialist Required: No Beliefs That Will Affect Care: None marital status: Legally Current Living Situation: Family current occupational status: unemployed Feels Safe at Home: Yes Smoking Status: Current every day smoker Tobacco Type: cigarettes ; Age Started Using Tobacco: 20 ; packs per day: 1 ; Cigarettes Per Day: 20 ; Second Hand Exposure: Yes ; Hx Alcohol Use: No Hx Substance Use: Yes Substance Use Type Other:: last used one month ago- was in rehab go out 08/06/19 Diet Comment: no specific diet Dental Care, Regularly: Yes Physical Activity Frequency: 3-4 Times per Week Physical Activity Frequency Comment: gym Seatbelt Use: always Do you think of yourself as: straight/heterosexual Review of Systems A total of 10 systems reviewed and were otherwise negative Physical Exam Vital Signs Vital Signs - 24 hr 03/18/20 02:28 03/18/20 04:38 Temperature 36.8 C Temperature Source Oral Pulse Rate 119 H Pulse Rate [Right Finger] 84 Respiratory Rate 20 18 Respiratory Effort / Characteristics Non-Labored Spontaneous Non-Labored Spontaneous Respiratory Depth Normal Normal Respiratory Pattern Regular Blood Pressure 162/70 H Blood Pressure [Right Arm] 91/53 L Blood Pressure Mean 100 Blood Pressure Mean [Right Arm] 65 Blood Pressure Position [Right Arm] Lying Pulse Oximetry 97 96 Oxygen Delivery Method Room Air Room Air Sepsis Action Taken by Nursing No Action Required VITALS: Vitals are noted on the nurse's note and reviewed by myself. Vital signs stable. GENERAL: Well-developed, well-nourished, white male, who is in no acute distress and resting comfortably. Patient is cooperative with the examination. HEAD: Normocephalic atraumatic. HEART: Regular rate and rhythm without murmurs gallops or rubs. LUNGS: Clear to auscultation bilaterally without wheezes, rales or rhonchi. No retractions or accessory muscle use. MUSCULOSKELETAL: Significant erythema and edema appreciated across the dorsum of the left hand with large 2x3 cm fluctuant abscess identified over the proximal phalanx of the left third finger dorsally. There is lymphangitic streaking to the mid forearm. Patient is not able to fully open and close his hand because of the swelling and pain. The abscess is with central mucous plug. NEURO: Patient was alert and oriented to person place and time. CN II through XII grossly intact. Procedures Abscess I/D Site: other (Left third finger) Technique: needle aspiration Irrigation: Yes Packing used?: none Complications: pain Course Administered Medications Discontinued Medications Buprenorphine/Naloxone (Suboxone 8 Mg/2 Mg) 2 tab SL DAILY [facility] Stop: 04/17/20 08:59 Last Admin: 03/18/20 10:05 Dose: 2 tab Documented by: [id number] Sodium Chloride (Nss 1000ml) 1,000 mls @ 999 mls/hr IV .Q1H1M [facility] Stop: 03/18/20 04:53 Last Admin: 03/18/20 07:30 Dose: Not Given Documented by: [id number] Infusion: 03/18/20 04:32 Dose: 0 mls/hr Documented by: [id number] Admin: 03/18/20 03:18 Dose: 999 mls/hr Documented by: [id number] Vancomycin HCl 1,750 mg/ (Sodium Chloride) 535 mls @ 200 mls/hr IV NOW ONE Stop: 03/18/20 05:32 Last Infusion: 03/18/20 06:01 Dose: 0 mls/hr Documented by: [id number] Admin: 03/18/20 03:40 Dose: 200 mls/hr Documented by: [id number] Piperacillin Sod/Tazobactam Sod (Zosyn) 4.5 gm in 120 mls @ 240 mls/hr IV NOW ONE Stop: 03/18/20 03:21 Last Infusion: 03/18/20 04:32 Dose: 0 mls/hr Documented by: [id number] Admin: 03/18/20 03:40 Dose: 240 mls/hr Documented by: [id number] Acetaminophen (Ofirmev) 1,000 mg in 100 mls @ 400 mls/hr IV NOW STA Stop: 03/18/20 03:14 Last Infusion: 03/18/20 03:35 Dose: 0 mls/hr Documented by: [id number] Admin: 03/18/20 03:18 Dose: 400 mls/hr Documented by: [id number] Vancomycin HCl 1,500 mg/ (Sodium Chloride) 530 mls @ 200 mls/hr IV Q8H [facility]; Protocol Stop: 03/25/20 09:59 Last Infusion: 03/18/20 12:44 Dose: 0 mls/hr Documented by: [id number] Admin: 03/18/20 10:05 Dose: 200 mls/hr Documented by: [id number] Lactated Ringer's (Lr) 1,000 mls @ 125 mls/hr IV .Q8H [facility] Stop: 03/18/20 14:46 Last Admin: 03/18/20 07:45 Dose: 125 mls/hr Documented by: [id number] Piperacillin Sod/Tazobactam (Sod 3.375 gm/ Dextrose) 115 mls @ 230 mls/hr IV Q6H [facility]; Protocol Stop: 03/25/20 07:59 Last Infusion: 03/18/20 10:08 Dose: 0 mls/hr Documented by: [id number] Admin: 03/18/20 09:20 Dose: 230 mls/hr Documented by: [id number] Medical Decision Making Differential Diagnosis Differential diagnosis includes: Etiologies such as cellulitis, abscess, osteomyelitis, MRSA infection, DVT, necrotizing fasciitis, dermatitis, drug eruption, as well as others were entertained Laboratory Data Result diagrams: 03/18/20 03:01 03/18/20 03:01 Lab Results 03/18/20 03/18/20 03/18/20 Range/Units 03:01 03:01 03:03 WBC 12.30 H (4.8-10.8) K/uL RBC 4.63 L (4.7-6.1) M/uL Hgb 13.8 L (14.0-18.0) g/dL Hct 40.4 L (42-52) % MCV 87.3 (80-100) fL MCH 29.8 (25-34) pg MCHC 34.2 (32-36) g/dL RDW Std Deviation 41.1 (36.4-46.3) fL RDW Coeff of Lupe 12.8 (11.5-14.5) % Plt Count 239 (130-400) K/uL MPV 9.2 (7.4-10.4) fL Immature Gran % (Auto) 0.2 % Neut % (Auto) 68.8 % Lymph % (Auto) 19.8 % Mcpherson % (Auto) 8.5 % Eos % (Auto) 2.5 % Baso % (Auto) 0.2 % Immature Gran # (Auto) 0.02 (0.00-0.02) K/uL Neut # (Auto) 8.46 H (1.4-6.5) K/uL Lymph # (Auto) 2.44 (1.2-3.4) K/uL Mcpherson # (Auto) 1.04 H (0.11-0.59) K/uL Eos # (Auto) 0.31 (0-0.5) K/uL Baso # (Auto) 0.03 (0-0.2) K/uL ESR 38 H (0-14) mm/hr Sodium 139 (136-145) mmol/L Potassium 3.7 (3.5-5.1) mmol/L Chloride 107 (98-107) mmol/L Carbon Dioxide 29 (21-32) mmol/L Anion Gap 3.0 (3-11) BUN 15 (7-18) mg/dl Creatinine 0.85 (0.6-1.4) mg/dl Est Cr Clr Drug Dosing 139.0 ml/min Est GFR ( Amer) 138.4 Est GFR (Non-Af Amer) 119.4 BUN/Creatinine Ratio 17.6 (10-20) Glucose 97 (70-99) mg/dl Lactate (0.4-2.0) mmol/L Calcium 9.2 (8.5-10.1) mg/dl Total Bilirubin 0.3 (0.2-1) mg/dl AST 20 (15-37) U/L ALT 24 (12-78) U/L Alkaline Phosphatase 94 (45-117) U/L C-Reactive Protein 4.54 H (0-0.29) mg/dl Total Protein 7.7 (6.4-8.2) gm/dl Albumin 3.6 (3.4-5.0) gm/dl Globulin 4.1 H (2.5-4.0) gm/dl Albumin/Globulin Ratio 0.9 (0.9-2) 03/18/20 Range/Units 03:22 WBC (4.8-10.8) K/uL RBC (4.7-6.1) M/uL Hgb (14.0-18.0) g/dL Hct (42-52) % MCV (80-100) fL MCH (25-34) pg MCHC (32-36) g/dL RDW Std Deviation (36.4-46.3) fL RDW Coeff of Lupe (11.5-14.5) % Plt Count (130-400) K/uL MPV (7.4-10.4) fL Immature Gran % (Auto) % Neut % (Auto) % Lymph % (Auto) % Mcpherson % (Auto) % Eos % (Auto) % Baso % (Auto) % Immature Gran # (Auto) (0.00-0.02) K/uL Neut # (Auto) (1.4-6.5) K/uL Lymph # (Auto) (1.2-3.4) K/uL Mcpherson # (Auto) (0.11-0.59) K/uL Eos # (Auto) (0-0.5) K/uL Baso # (Auto) (0-0.2) K/uL ESR (0-14) mm/hr Sodium (136-145) mmol/L Potassium (3.5-5.1) mmol/L Chloride (98-107) mmol/L Carbon Dioxide (21-32) mmol/L Anion Gap (3-11) BUN (7-18) mg/dl Creatinine (0.6-1.4) mg/dl Est Cr Clr Drug Dosing ml/min Est GFR ( Amer) Est GFR (Non-Af Amer) BUN/Creatinine Ratio (10-20) Glucose (70-99) mg/dl Lactate 0.7 (0.4-2.0) mmol/L Calcium (8.5-10.1) mg/dl Total Bilirubin (0.2-1) mg/dl AST (15-37) U/L ALT (12-78) U/L Alkaline Phosphatase (45-117) U/L C-Reactive Protein (0-0.29) mg/dl Total Protein (6.4-8.2) gm/dl Albumin (3.4-5.0) gm/dl Globulin (2.5-4.0) gm/dl Albumin/Globulin Ratio (0.9-2) Imaging Data Radiologist's Impression: XR hand LT min 3V routine CLINICAL HISTORY: Left proximal 3rd digit abscess. ?Osteo pain. Infection. COMPARISON: None. DISCUSSION: The bones and joint spaces appear intact. There is no evidence of fracture, dislocation or bony disease. Mild dorsal soft tissue edema. No acute bony abnormality. IMPRESSION: Soft tissue edema. No acute bony abnormality. MDM Narrative Physical exam and history were performed. Nursing notes, EMR, and Medication List were personally reviewed. Patient appears to have abscess and cellulitis of his left third finger ext ending into his hand and up his arm. The patient is tachycardic on presentation. I was able to utilize an 18-gauge needle to do remove the abscess and obtain a large amount of purulent material. Some of this was sent to the lab for culture. My concern is the patient certainly could have sepsis or osteomyelitis based on his presentation. IV access was established and labs were obtained. Blood cultures were gathered. X-ray was performed. After consultation with pharmacy the patient was started on vancomycin and Zosyn IV. He was given IV Tylenol and IV fluids. The patient's blood work is as above and was reviewed. He does have an elevated white blood cell count of 12.3. He is slightly anemic at 13.8, however this does seem chronic. Transaminases are not diagnostic. Lactic acid x1 is negative. Blood cultures are pending. A urine was ordered, but the patient was not able to provide this while in the ER. X-ray was performed and reviewed by myself and radiology showing no acute process. The patient was reevaluated multiple times at the course of his stay. He was able to sleep comfortably in the ER after drainage of the abscess and the IV Tylenol. He is no longer tachycardic and seems much more comfortable. Overall my concern is for the extensive nature of his infection. The patient will likely need continued IV antibiotics, and possibly orthopedic evaluation if his range of motion does not return to the hand. The patient case was discussed with the on-call hospitalist who agreed to evaluate him here in the ER. Please see their dictation for further patient course, plan, disposition. The chart was completed utilizing [employer] Speech Voice Recognition Software. Grammatical errors, random word insertions, pronoun errors, and incomplete sentences are an occasional consequence of this system due to software limitations, ambient noise, and hardware issues. Any formal questions or concerns about the content, text, or information contained within the body of this dictation should be directly addressed to the provider for clarification. . Impression & Plan Cellulitis and abscess of hand Discharge Plan Visit Data *Final* Discharge Date/Time: 03/18/20 06:25 Chief Complaint: Hand Injury/Pain Stated Complaint: LT HAND INJURY - NOT SURE WHAT - BITE? ED Provider: Enedina Nguyen ED Midlevel Provider: Moisés Magaña Discharge Problem: Cellulitis and abscess of hand Patient Disposition: Admitted As Inpatient Condition: Fair Discharge Instructions Interventions: ED Discharge Assessment Last Done: 03/18/20 06:25
[2020-03-18] MEDS ORDERED: LACTATED RINGER'S 1,000 ML IV SCH (06:47)
[2020-03-18] MEDS ORDERED: ACETAMINOPHEN 325 MG TAB PO PRN (06:47)
[2020-03-18] MEDS ORDERED: PIPERACILLIN/TAZOBACTAM 3.375 GM in DEXTROSE 5% 100 ML IV SCH (08:00)
[2020-03-18] MEDS ORDERED: BUPRENORPHINE/NALOXONE 8/2 MG TAB SL SCH (09:00)
--- NOTE | 2020-03-18 09:26 | Pharmacy Report ---
Pharmacy Abx Initial Consult - Date of Service March 18, 2020 - Pharmacy Dosing Scope Date of Consult: 03/18/20 Consultation requested by: Dr. Chan Pharmacy is consulted to initiate vancomycin and Zosyn IV dosing therapy, order appropriate labs and adjust drug dose/frequency. - Subjective The patient is a 29 year old M admitted on 03/18/20 05:30. - Objective Height: 5 ft 11 in Weight: 85.4 kg Vital Signs (Past 12hrs): Vital Signs Temp Pulse Pulse Resp BP BP Pulse Ox 03/18/20 06:51 36.5 C 65 18 94/59 L 96 03/18/20 06:25 36.8 C 52 L 20 107/66 95 03/18/20 05:56 60 16 107/66 95 03/18/20 04:38 84 18 91/53 L 96 03/18/20 02:28 36.8 C 119 H 20 162/70 H 97 Lab Results (24hrs): Laboratory Tests (24 Hours) 03/18/20 03/18/20 03/18/20 03:03 03:01 03:01 WBC 12.30 H Neut # (Auto) 8.46 H ESR 38 H Creatinine 0.85 Est Cr Clr Drug Dosing 139.0 C-Reactive Protein 4.54 H Micro Results: 03/18/20 02:50 Gram Stain - Final Finger Wound Culture - Pending 03/18/20 03:17 Aerobic Blood Culture - Pending Blood Anaerobic Blood Culture - Pending 03/18/20 03:01 Aerobic Blood Culture - Pending Blood Anaerobic Blood Culture - Pending - Assessment & Plan Assessment 29 year old M ordered empiric vancomycin and Zosyn for treatment of left hand abscess. Patient states that he is unsure of how the injury occurred - possible bite? I&D in ED - will await cultures. Of note, patient does have history of polysubstance IV drug abuse. Patient afebrile with mild leukocytosis (WBC: 12.3). Blood and finger cultures pending. Allergies noted to cephalexin and sulfamethoxazole/trimethoprim (rash). Plan Vancomycin IV * Estimated PK Parameters: Vd 0.7 L/kg, Henri > 0.104 hr-1, t1/2 6 hr * Loading dose: 1750 mg (21 mg/kg) * Maintenance dose: 1500 mg IV (17 mg/kg) every 8 hours * Goal trough level for cellulitis : 10 to 20 mcg/mL * Trough level ordered for 03/20/20 Piperacillin/tazobactam * 4.5 g bolus administered over 30 minutes, then 3.375 g IV extended infusion every 8 hours for CrCl greater than 20 mL/min * Will change to 3.375 g IV q6h - 30 minute infusion while patient is receiving LR due to incompatibility Pharmacy will continue to follow and will adjust dose/frequency as necessary. Thank you.
[2020-03-18] MEDS ORDERED: KETOROLAC 30 MG/ML VIAL IV PRN (09:29)
[2020-03-18] MEDS ORDERED: VANCOMYCIN HCL 1,500 MG in SODIUM CHLORIDE 0.9% 500 ML IV SCH (10:00)
--- NOTE | 2020-03-18 13:49 | Discharge Summary ---
Date of Service March 18, 2020 Admission HPI Per Admitting Provider 29yo C male with history of polysubstance abuse presenting with left hand abscess. He reports pain and swelling to left hand x 1 day. No trauma. No breaks in the skin that he recalls. He denies fevers, chills, nausea, vomiting, diarrhea or constipation. No additional complaints ER Course: Vancomycin, Zosyn, NSS, Tylenol Principal Diagnosis Left middle finger abscess/cellulitis Discharge Exam Constitutional WD/WN, vitals as above Eyes + anicteric sclerae Neck trachea midline, no thyromegaly Respiratory normal respiratory effort, lungs clear to auscultation Cardiovascular RRR, no murmur, no edema Chest (Breasts) Chest: normal inspection of chest Gastrointestinal (Abdomen) normal bowel sounds, soft, nontender, no hepatosplenomegaly Musculoskeletal Extremities: no cyanosis and no clubbing left dorsal middle finger with 2cm open area with purulent drainage, mild surrounding erythema, moderate edema at base of finger NVI distal to abscess. No erythema streaking up arm No packing in place; with purulent and bloody drainage on dressing Skin + wound (left finger as above;multiple scars all over body) Neurologic moves all extremities and awake; no focal motor deficits Psychiatric A+Ox3, euthymic affect Lymphatic no lymphedema Discharge Data Allergies Allergy/AdvReac Type Severity Reaction Status Date / Time Bactrim Allergy Intermediate rash Verified 06/05/18 09:16 cephalexin Allergy Intermediate rash Verified 02/20/20 11:58 sulfamethoxazole Allergy Intermediate rash Verified 02/20/20 11:58 trimethoprim Allergy Intermediate rash Verified 02/20/20 11:58 Consultations 03/18/20 05:13 ED Decision to Admit Stat Procedures Performed Left hand xray Hospital Course (1) Abscess, hand: S/p incision and drainage left middle finger abscess in the ER. With large amount of pus expressed as per patient. Patient afebrile, HD stable, no evidence of systemic infection. WBC count elevated at 12 -was admitted to medical floor, feels muchbetter, insists on going home Pain improved, received IV Zosyn and Vanco Wound cx Gram stain with GPC, cx pending, BCxs no growth to date Appears nontoxic Has a h/o MSSA, never had MRSA -Follow cultures, blood and wound sent from ER after discharge ok for discharge to home this afternoon on Augmentin and doxy x 10 day course Continue dressing changes, elevation of hand Gave precautions to return if has worsening pain, swelling, redness, or fevers -Tylenol and ibuprofen as needed for pain -Needs close f/u with PCP (2) Polysubstance abuse: Patient with history of polysubstance abuse, IV heroin. Presently on Buprenorphine/Naloxone. -Utox ordered in ER, never collected before discharge Follows with Suboxone clinic where I am hopeful he is drug tested routinely -Continue buprenorphine/naloxone Ppx - low risk for DVT Code - Full Dispo -stable for dc to home Total Time Total Time Spent Total Time Spent (In Minutes): 35 min Total Time Includes: Examination of the Patient, Discharge Planning and Medication Reconciliation Discharge Plan Discharge Items Patient Disposition: Home - Self-Care Reason For Visit: CELLULITIS, LEFT HAND Discharge Diagnosis: Left finger abscess/cellulitis Condition on Discharge: Fair Activity: As commented below Activity Comment: Limit use of left hand, keep hand elevated above heart Bathing: No limitations Bathing Comment: You can remove the dressing to shower and use soap on hand, then pat dry Non-emergency contact: Primary Care Provider Call non-emergency contact if: you have any medication questions, your symptoms worsen, your pain is not controlled, your pain is worsening, your pain is unusual for you, your pain is concerning for you, you have a fever, your temperature is above 101, your wound has increased redness, your wound has increased drainage and your wound pain has increased Follow-up/Referrals: David Jaime, DO [Primary Care Provider] - (Please call Dr. Jaime's office to see about a Tele Health follow up visit within the next few days ) Diet: Regular Addtl Attending Provider Instructions: Please change out the dressing daily or as needed when saturated with drainage. Continue both antibiotics twice a day for 10 days. If swelling, pain, redness worsen or if you develop fevers, chills, sweats, please return to the hospital. Pending Studies at Discharge: Yes (Wound culture, Blood cultures) Stand-Alone Forms: My Flumes, Smoking Cessation Medications and DC Order Prescriptions: New acetaminophen [Mapap (acetaminophen)] 325 mg Tablet 650 mg PO Q4H PRN (Reason: pain) Qty: 30 RF: 0 ibuprofen 200 mg tablet 800 mg PO Q8H PRN (Reason: pain) Qty: 30 RF: 0 doxycycline hyclate 100 mg tablet 100 mg PO BID 10 Days Qty: 20 RF: 0 amoxicillin-pot clavulanate [Augmentin] 875-125 mg tablet 1 tab PO BID Qty: 20 RF: 0 Continued buprenorphine-naloxone [Suboxone] 8-2 mg film 2 ea BUCCAL DAILY RF: 0 Discharge Orders: Discharge Order (Routine); Ordered 03/18/20 Ordered By: Марина Brannon Admission Data Admit Date/Time: 03/18/20 05:30 Attending Provider: Марина Brannon Admit Provider: Pauline Chan Primary Care Provider: David Jaime Other Providers: Pauline Chan Coding Level of Care Code Admit/DC Same Day >8hr Level 2 Diagnoses Abscess, hand L02.519 Polysubstance abuse F19.10
[2020-03-20] MEDS ORDERED: VANCOMYCIN TROUGH ONE (09:30)
== END 2020-03-18 14:19 | disposition home or self-care (01) ==
LOC: ED 02:16 → 3E 02:16 → SUATTDRO 05:30 → 3E 06:25